=== PATIENT | female | born 2005 | race Caucasian/White ===

== ENCOUNTER 2024-12-22 15:22 | Inpatient (IN) | payer OTHER, MEDICAID ==
[~2024-12-22] VITALS: Ht 170.2 cm; Wt 53.2 kg
[~2024-12-22 15:22] MED LIST: HYDR50CA5 PO; NICO-631 TOP; RISP-32 PO
--- NOTE | 2024-12-22 15:52 | Physician Documentation ---
History of Present Illness ~ Chief Complaint: Mental Health Divyaal Stated Complaint: MH Time Seen by MD: 15:34 Primary Medical Doctor: none HPI This is a 19 yr old female who states that she has extensive mental health issues but does not currently see a psychiatrist or therapist. Not currently on medications, but reports that risperdal and hydroxyzine have been helpful in the past. Her specific concerns today surround feeling unsafe. "Someone is following me," and she states that she wants to strangle this man. When asked if she could identify him, she notes that she is not sure that she could because "everyone looks the same to me." She admits to feeling thoughts of self harm without plan and denies attempts to harm herself recently such as with overdose or cutting. Medication Reconciliation Allergies: Coded Allergies: No Known Allergies (Unverified , 05/28/23) Scheduled Nicotine 14 MG Patch* (Habitrol 14 MG Patch*), 1 PATCH TOP DAILY, (Reported) Risperidone (Risperidone), 1 TAB PO HS, (Reported) Scheduled PRN Hydroxyzine Pamoate (Hydroxyzine Pamoate), 1 CAP PO Q12H PRN for anxiety, (Rep orted) Discontinued Medications Home Med List (No Home Medications), (Reported) Discontinued Reason: patient no longer taking Nicotine 21 MG Patch* (Habitrol 21 MG Patch*), 1 PATCH TD DAILY Discontinued Reason: patient no longer taking Nicotine Polacrilex (Nicotine Lozenge), 2 MG BC Q2H PRN for NICOTINE CRAVING Discontinued Reason: patient no longer taking Prazosin Hcl (Prazosin Hcl), 1 CAP PO HS, (Reported) Discontinued Reason: patient no longer taking Past Medical History Past Medical History: No Pertinent History Past Surgical History: no surgical history Drug Use: marijuana Lives In: Home Review of Systems ROS As stated above in the HPI, otherwise all systems are reviewed and negative. Physical Exam Vital Signs: Temperature: 98.2, Source: Temporal, Heart Rate: 123, Respiratory Rate: 18, BP: 107/61, Pulse Oximetry: 100, Weight: 58.200 Oxygen Flow Rate: 0 Physical Exam General: Alert, no apparent distress. Neck: Full range of motion. Respiratory: Lungs clear, no respiratory distress. Chest: No accessory muscle use. Cardiovascular: Regular rate and rhythm, no murmurs. Gastrointestinal: Soft, nontender, nondistended. Bowels sounds present. Extremities: Normal range of motion, no deformity. Neurologic: Oriented x4. Psychiatric: Guarded, somewhat flat affect. Skin: Normal color, warm and dry. No edema, no ecchymosis. Progress Progress Note Transfer orders for [facility]: At this time there is no evidence of an emergent medical condition that would preclude (admission/transfer) to a psychiatric unit via [facility] protocol for further psychiatric, as well as medical evaluation and treatment. At this time I have no reason to believe that transfer via [facility] protocol would have serious medical compromise in the patient's health. Results/Orders Results/Orders Orders - ALYSON TOMLINSON NP Med Rec (12/22/24 15:48) 1799.11 (12/22/24 15:48) Regular Diet (12/22/24 Dinner) Close Observation Level (12/22/24 15:48) Covid19 Binax Poc Result Entry (12/22/24 15:48) Completed Orders - ALYSON TOMLINSON NP Drug Screen, Urine (12/22/24 15:47) Hcg, Ur Ql (12/22/24 15:47) BMP (12/22/24 15:47) Cbc/Diff (12/22/24 15:47) Risperidone Tablet (Risperdal Tablet) (12/22/24 16:25) Hydroxyzine Tablet (Atarax Tablet) (12/22/24 16:25) Ua With Microscopic (12/22/24 16:21) Medications Received in ER Medications (Trade) Dose Ordered Sig/Deanna Route PRN Reason Start Time Stop Time Status Last Admin Dose Admin (Risperdal tablet) 0.5 mg ONCE ONCE PO 12/22/24 16:25 12/22/24 16:26 DC 12/22/24 16:52 0.5 MG (Atarax tablet) 25 mg ONCE ONCE PO 12/22/24 16:25 12/22/24 16:26 DC 12/22/24 16:52 25 MG Vital Signs 12/22/24 12/22/24 15:27 16:34 Temp 98.2 Pulse 123 Resp 18 16 B/P (MAP) 107/61 Pulse Ox 100 O2 Flow Rate 0 Laboratory Tests Test 12/22/24 16:00 12/22/24 16:15 12/22/24 16:21 White Blood Count 4.9 Red Blood Count 4.34 Hemoglobin 13.4 Hematocrit 39.3 Mean Corpuscular Volume 90.6 Mean Corpuscular Hemoglobin 30.9 Mean Corpuscular Hemoglobin Concent 34.1 Red Cell Distribution Width 13.1 Platelet Count 227 Mean Platelet Volume 9.2 Neutrophils (%) (Auto) 58.0 Lymphocytes (%) (Auto) 31.4 Monocytes (%) (Auto) 9.6 Eosinophils (%) (Auto) 0.5 Basophils (%) (Auto) 0.5 Neutrophils # (Auto) 2.8 Lymphocytes # (Auto) 1.5 Monocytes # (Auto) 0.5 Eosinophils # (Auto) 0.0 Basophils # (Auto) 0.0 CBC Comment Sodium Level 142 Potassium Level 3.6 Chloride Level 107 Carbon Dioxide Level 23.7 L Anion Gap 11 Blood Urea Nitrogen 10 Creatinine 0.74 Estimated GFR/1.73 m2 > 90 BUN/Creatinine Ratio 13.5 Glucose Level 129 H Calcium Level 9.0 Albumin 4.3 Chemistry Comments SARS-CoV-2 Antigen (Rapid) Negative Urine Specimen Description Non-specified Urine Color Dark yellow Urine Clarity Slightly cloudy Urine pH 6.0 Urine Specific Lead >=1.030 Urine Protein 100 H Urine Glucose (UA) Negative Urine Ketones 40 H Urine Occult Blood Moderate H Urine Nitrite Negative Urine Bilirubin Moderate Urine Urobilinogen 0.2 Urine Leukocyte Esterase Negative Urine RBC 3-10 Urine WBC 0-4 Urine Squamous Epithelial Cells Moderate Urine Bacteria Few Urine Mucus Many Volume Urine Centrifuged 10 ml Urine HCG, Qualitative Negative Urine Comment Urine Opiates Screen Negative Urine Methadone Screen Negative Urine Fentanyl Screen Negative Urine Barbiturates Screen Negative Urine Phencyclidine Screen Negative Urine Amphetamines Screen Negative Urine Benzodiazepines Screen Negative Urine Cocaine Screen Negative Urine Cannabinoids Screen Positive H Drug Screen Comment Medical Decision Making Differential Dx:Considerations: Include: Alcohol abuse, Anxiety, Bipolar disorder, Conversion disorder, Depression, Encephaloathy, Homicidal, Panic disorder, Personality disorder, Schizophrenia, Substance abuse, Suicidal Departure Time of Disposition: 16:58 Disposition: 30 STILL A PATIENT Impression: Primary Impression: Suicidal ideation Additional Impression Text Transfer orders for [facility]: At this time there is no evidence of an emergent medical condition that would preclude (admission/transfer) to a psychiatric unit via [facility] protocol for further psychiatric, as well as medical evaluation and treatment. At this time I have no reason to believe that transfer via [facility] protocol would have serious medical compromise in the patient's health. Referrals: NO PRIMARY CARE PROVIDER (PCP) Signature Scribe Signature: x Attestation: The note accurately reflects work and decisions made by me.Alyson Tobias NP 12/22/24 15:52 ALYSON TOMLINSON NP Dec 22, 2024 15:52
[2024-12-22 16:31] LABS: MEAN PLATELET VOLUME 9.2 FL (7.4-10.4); RED CELL DISTRIBUTION WIDTH 13.1 % (11.5-14.5)
[2024-12-22 16:34] LABS: CREATININE 0.74 MG/DL (0.40-0.90); TOTAL CARBON DIOXIDE 23.7 MMOL/L (24-32); eCRCL 111 ML/MIN; eGFR > 90 ML/MIN
[2024-12-22 16:36] LABS: LEUKOCYTE ESTERASE ,URINE NEGATIVE (Neg); NITRITES, URINE NEGATIVE (Neg); OCCULT BLOOD,URINE MODERATE (Neg); URINE HCG NEGATIVE (NEG)
[2024-12-22 16:38] LABS: UA COLLECTION TYPE NON-SPECIFIED
[2024-12-22 16:42] LABS: MUCUS STRANDS MANY /LPF (Neg); SQUAMOUS EPITHELIAL CELL,UR MODERATE /LPF (FEW)
[2024-12-22 16:48] LABS: URINE AMPHETAMINE SCREEN NEGATIVE (Neg); URINE BARBITUATE SCREEN NEGATIVE (Neg); URINE BENZODIAZEPINES SCREEN NEGATIVE (Neg); URINE CANNABINOID SCREEN POSITIVE (Neg); URINE COCAINE SCREEN NEGATIVE (Neg); URINE METHADONE SCREEN NEGATIVE (Neg); URINE OPIATE SCREEN NEGATIVE (Neg); URINE PHENCYCLIDINE SCREEN NEGATIVE (Neg)
[2024-12-22] MEDS ORDERED: loperamide 2mg capsule PO PRN (20:40)
[2024-12-22] MEDS ORDERED: mag hydrox/Alum hydrox/simeth 30ml oral suspension PO PRN (20:40)
[2024-12-22 21:45] VITALS: RESP 18; O2SAT 98
[2024-12-23 00:23] VITALS: BP 115/70; PULSE 92; RESP 18; TEMP 98.2; O2SAT 98
[2024-12-23] MEDS ORDERED: NO HOME MEDS (04:56)
[2024-12-23 07:00] VITALS: RESP 14; O2SAT 99
[2024-12-23 08:00] VITALS: BP 98/68; PULSE 87; RESP 14; TEMP 97.6; O2SAT 99
[2024-12-23] MEDS: nicotine 21mg patch - 24 hr TD SCH (08:04)
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
--- NOTE | 2024-12-23 16:05 | HISTORY AND PHYSICAL-Residence ---
History & Physical Providers to CC Resident Creating Document: JOSE DANIEL LUNA RES ~ History of Present Illness Primary Medical Doctor: none Reason for Admit\Complaint: Psychiatric issues History of Present Illness The patient is a 19-year-old female with a known history of psychiatric illness, currently admitted to the [facility] unit. I evaluated her at the bedside. She reports a history of recurrent urinary tract infections, previously treated with outpatient antibiotics. Recently, she attempted self-treatment with home remedies, including grapefruit juice. She describes persistent urinary frequency and and dysuria almost every month just prior to her menstruation. Social history is notable for cigarettes use of approximately one pack per day for the past four years. She denies recreational drug use. During the encounter, she inquired about her ability to obtain life insurance. I deferred answering this question and referred her to Psychiatry and case management for further guidance. Allergies: Coded Allergies: No Known Allergies (Unverified , 05/28/23) Home Medications Home Medications Active Reported No Home Medications (Home Med List) Each Past Medical History Past Medical History Recurrent urinary tract infection Past Surgical History Surgical History Comment No history of surgical procedure Past Social History Social History Comment Smokes one pack of day for the past four years. Drug Use: Marijuana Lives In: Home ROS All Other Systems: Reviewed and Negative ROS As stated above in the HPI, otherwise all systems are reviewed and negative. Exam Vitals: Vital Signs Date Time Temp Pulse Resp B/P (MAP) Pulse Ox O2 Delivery O2 Flow Rate FiO2 12/23/24 08:00 97.6 87 14 98/68 (78) 99 Room Air 12/22/24 15:27 0 General: Thin built young woman, Awake and Alert, no acute distress. HEENT: Conjunctiva pink, Sclera clear, Mucus Membranes moist. Neck: Supple without masses and tenderness. Resp: Unlabored. Lungs clear to auscultation bilaterally. Heart: Regular Rate and rhythm, normal S1 and S2 without murmur, rub or gallop. Abdomen: Soft and non tender no organomegaly Extremities: No cyanosis,clubbing or edema. Skin: Warm and Dry. Diagnostic Data Last Recorded Lab Results: 12/22/24 1600 12/22/24 1600 Advance Care Planning Advanced Care plannin - 30 Minutes Additional Plan Psychiatric issues/suicidal ideation Managed per Psychiatry Suspected urinary tract infection vs Premenstrual Syndrom (PMS) A UA is ordered, we will follow Tobacco use disorder On Nicotine patch Jose Daniel Luna Internal Medicine Resident, PGY-3 Date of Service: Dec 23, 2024 Billing Provider: KATHERINE CHOWDHURY MD Common Visit Codes: [id number] INP/OBS CARE (HIGH) JOSE DANIEL LUNA, RES Dec 23, 2024 16:04 KATHERINE CHOWDHURY MD Dec 24, 2024 07:53
[2024-12-23 19:00] VITALS: RESP 18; O2SAT 99
[2024-12-23 20:00] VITALS: BP 147/87; PULSE 108; RESP 18; TEMP 97.6; O2SAT 99
[2024-12-24 07:00] VITALS: RESP 15; O2SAT 98
[2024-12-24 08:00] VITALS: BP 95/54; PULSE 71; RESP 15; TEMP 98.1; O2SAT 98
[2024-12-24 09:40] VITALS: BP 97/64; PULSE 81; RESP 18; TEMP 97.3; O2SAT 100
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
[2024-12-24 19:00] VITALS: RESP 16; O2SAT 100
[2024-12-24 20:00] VITALS: BP 114/78; PULSE 119; RESP 16; TEMP 97.9; O2SAT 100
[2024-12-25 07:00] VITALS: RESP 16; O2SAT 99
[2024-12-25 08:00] VITALS: BP 91/65; PULSE 81; RESP 16; TEMP 98.2; O2SAT 99
[2024-12-25] MEDS: NICOTINE POLACRILEX 2 MG LOZENGE BC PRN (11:16)
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
--- NOTE | 2024-12-25 17:50 | PROGRESS NOTE- Residence ---
Progress Note - Resident Providers to CC Resident Creating Document: MOJGAN QUINTEROS, AMALIA ~ Central Line/PICC still needed: N\A Zuñiga-Non Protocol Zuñiga Indications Met/Not Met: F/C Indications Not Met Antibiotic Timeout Antibiotic Ordered?: No Subjective Patient examined bedside. Complains of lower abdominal pain when she eats. Complains of constipation since 2 days, used to have regular bowel movement before that. No complaints of burning micturition, urgency or frequency, fever, nausea/vomiting. Objective Vital Signs Date Time Temp Pulse Resp B/P (MAP) Pulse Ox O2 Delivery O2 Flow Rate FiO2 12/25/24 08:00 98.2 81 16 91/65 (74) 99 Room Air 12/22/24 15:27 0 Result Diagram: 12/22/24 1600 12/22/24 1600 General: Well alert, well oriented, not confused, not agitated, not in acute distress, well cooperated during the physical. HEENT: Conjunctive are pink, sclerae clear, no icterus, pupil is equal in both sides, reactive to light, no ear discharge, no pharyngeal erythema or an edema. Neck: Supple, no JVD, no lymphadenopathy and thyromegaly. Chest: Equal air entry on both lungs, no added sounds, no wheeze. Cardiovascular: S1-S2 regular sinus rhythm and, regular rate, no gallops, no rubs, no murmurs Abdomen: No visible peristalsis, Bowel sounds present on auscultation, soft, nontender, no guarding, no rigidity Extremities: No obvious deformities, no pitting edema bilaterally, capillary refill intact, peripheral pulsations are intact on both sides Central Nervous System: No focal neurological deficits, no motor or sensory weakness in all 4 extremities, could move all 4 extremities, 2+ deep tendon reflexes, negative Babinski. Musculoskeletal: No joint swelling, deformities, inflammations, and no scoliosis and back tenderness Skin: Warm and dry. Counseling Services Smoking & Tobacco Cessation: N/A Advance Care Planning Advanced Care planning: N/A Plan Plan Psychiatric issues/suicidal ideation Managed per Psychiatry Suspected urinary tract infection vs Premenstrual Syndrom (PMS) A UA is ordered, we will follow 12/25/2024: UA shows few bacteria with 0-5 WBC Since the patient asymptomatic, no antibiotic recommended at this time. Lower abdominal pain with constipation Started Colace 100 mg p.o. b.i.d. Tobacco use disorder On Nicotine patch Mojgan Quinteros Internal Medicine, PGY1. Date of Service: Dec 25, 2024 Billing Provider: KATHERINE CHOWDHURY MD Common Visit Codes: [id number] INP/OBS CARE(MOD) MOJGAN QUINTEROS, RES Dec 25, 2024 17:50 KATHERINE CHOWDHURY MD Dec 26, 2024 07:46
[2024-12-25 19:00] VITALS: RESP 15; O2SAT 98
[2024-12-25 19:42] VITALS: BP 109/75; PULSE 98; RESP 15; TEMP 98.6; O2SAT 98
[2024-12-25] MEDS: docusate sodium 100mg/10ml UD cup PO SCH (21:05)
[2024-12-26 07:24] VITALS: RESP 16; O2SAT 98
[2024-12-26 08:00] VITALS: BP 116/77; PULSE 76; RESP 16; TEMP 98.2; O2SAT 98
[2024-12-26] MEDS: magnesium hydroxide 30ml (MOM) UD suspension PO PRN (10:40)
[2024-12-26 10:53] LABS: LDL CHOLESTEROL 66 MG/DL (50-100)
[2024-12-26 11:00] LABS: CHOL/HDL RATIO 2.8 (0.00-4.99)
--- NOTE | 2024-12-26 14:18 | PROGRESS NOTE ---
Progress Note Dictate Providers to CC ~ Central Line/PICC still needed: N\\A Antibiotic Ordered?: No MRSA Education MRSA Education Provided to pt: No Objective Vitals Vital Signs Date Time Temp Pulse Resp B/P (MAP) Pulse Ox O2 Delivery O2 Flow Rate FiO2 12/26/24 08:00 98.2 76 16 116/77 (90) 98 Room Air 12/22/24 15:27 0 Lab Results: 12/22/24 1600 12/22/24 1600 Problem\\Assessment\\Plan Problems/Diagnosis: (1) Paranoia (2) Borderline personality disorder Psychiatrist's Progress Note Date of Service: Dec 26, 2024 Notes CHART REVIEW Pt is 19 yo on a 5150 for DTS and GD. Pt state that she has staying in several PHP before. Pt came to ED because she felt unsafe and someone was following her. Pt presents with paranoia, fear, SI and hallucinations. Pt jumps from stranger stacking her to her biological father wants to harm her. Pt feels a burden on her family, this caused the SI. Pt states, "other people's voices in my head telling me I'm gross and disgusting I am". Pt feels she is being pulled towards danger. Pt is very animated and labile during her interview. Pt has the delusion that her family is in danger by the man stalking her. "I don't know who he is but he will yell at me as he is stalking me". Skin check and MRSA done. Pt is cooperative and oriented to unit. ASSESSMENT The patient was interviewed in observation room. The patient was actively sitting in rec room engaging with nurse. The patient endorses "I am feeling better." "Nope I am not paranoid today." Patient endorses no worsening mental health symptoms. Denies SI. Denies HI. Denies AVH. Patient endorses adequate sleep and food intake. The patient is stable no acute distress noted. The patient presents as calm and cooperative. Per staff report no abnormal behaviors. Will continue daily assessment and adjusting treatment as needed. Closely monitor behavior and response to medication during hospitalization. Results Of any Diagn. Testing REVIEW OF LABS URINALYSIS NEGATIVE COVID NEGATIVE URINE TOX SCREEN POSITIVE FOR CANNABIS RBC 4.34 HEMOGLOBIN 13.4 HEMATOCRIT 39.3 PLATELET COUNT 227 SODIUM 142 POTASSIUM 3.6 CHLORIDE 107 ANION GAP 11 BUN 10 CREATININE 0.74 CALCIUM 9.0 ALBUMIN 4.3 Speech: Other (CIRCUMSTANTIAL) Speech: Other (CIRCUMSTANTIAL) Eye Contact: Normal Motor Activity: Normal Affect: Full Mood: Euthymic Orientation Impairment: None Memory Impairment: None Attention: Normal Hallucinations: None Other: None Suicidality: None Homicidality: None Delusions: None Behavior: Cooperative Insight: Fair Judgment: Fair Treatment RISPERIDONE 2MG P.O. QHS HYDROXYZINE 50 MG P.O. Q.6 PRN THORAZINE 50 MG P.O. Q.6 PRN-AGITATION/ANXIETY BENADRYL 50 MG P.O. Q.6 PRN-EPS TRAZODONE 50 MG P.O. Q.H.S. Monitoring by Staff, Milieu, Group, and Individual counseling as needed -- According to the [place] Suicide Assessment the above named patient is on Q15 MINUTE CHECKS. [id number]-Patient is unable to formulate a plan for safety. We are still titrating medications to an effective dose while maintaining a therapeutic environment to prevent decompensation and readmission. Time spent 25 minutes REVIEW OF Clinical notes [X ] RN notes [X] PCT documentation [X] SW notes Labs [ X] Medications [X] Care trends/care activity [X] Vitals [X] DISCUSSION WITH motorcycle builder [X] Staff SW [X] Treatment Team [X] Discharge UNSURE AT THIS TIME. DISCHARGE HOME MONDAY ONCE STABLE. CODING VISIT-PSYCHIATRY Date of Service: Dec 26, 2024 Billing Provider: DINA ULLOA APRN Psych Common Visit Codes: [id number] INP/OBS CARE(Low) DINA ULLOA APRN Dec 26, 2024 14:18
[2024-12-26 19:00] VITALS: RESP 16; O2SAT 99
[2024-12-26 20:00] VITALS: BP 117/71; PULSE 109; RESP 16; TEMP 97.6; O2SAT 99
[2024-12-27 07:00] VITALS: RESP 16; O2SAT 96
[2024-12-27 08:00] VITALS: BP 99/57; PULSE 65; RESP 16; TEMP 97.8; O2SAT 96
--- NOTE | 2024-12-27 11:29 | PROGRESS NOTE ---
Progress Note Dictate Providers to CC ~ Central Line/PICC still needed: N\\A Antibiotic Ordered?: No MRSA Education MRSA Education Provided to pt: No Objective Vitals Vital Signs Date Time Temp Pulse Resp B/P (MAP) Pulse Ox O2 Delivery O2 Flow Rate FiO2 12/27/24 08:00 97.8 65 16 99/57 (71) 96 Room Air Problem\\Assessment\\Plan Problems/Diagnosis: (1) Paranoia (2) Borderline personality disorder Psychiatrist's Progress Note Date of Service: Dec 27, 2024 Notes CHART REVIEW Pt is 19 yo on a 5150 for DTS and GD. Pt state that she has staying in several PHP before. Pt came to ED because she felt unsafe and someone was following her. Pt presents with paranoia, fear, SI and hallucinations. Pt jumps from stranger stacking her to her biological father wants to harm her. Pt feels a burden on her family, this caused the SI. Pt states, "other people's voices in my head telling me I'm gross and disgusting I am". Pt feels she is being pulled towards danger. Pt is very animated and labile during her interview. Pt has the delusion that her family is in danger by the man stalking her. "I don't know who he is but he will yell at me as he is stalking me". Skin check and MRSA done. Pt is cooperative and oriented to unit. ASSESSMENT The patient was interviewed in observation room. The patient was actively sitting in rec room listening to music and engaging with peers. The patient endo rses "Good." The patient endorses no worsening mental health symptoms. The patient endorses she can not afford her co-pay for her medication "I guess I can go powerwash some trash cans for the money" and has been coming to the ER for medications. The patient endorses she cant get them from the [facility] due to insurance. Denies SI. Denies HI. Denies AVH. Patient endorses adequate sleep and food intake. The patient is stable no acute distress noted. The patient presents as calm and cooperative. Per Per staff report no abnormal behaviors. Will continue daily assessment and adjusting treatment as needed. Closely monitor behavior and response to medication during hospitalization. Will follow up dialysis social worker regarding patient being able to afford her co-pay f or medications or if [facility] is able to pay for medications for discharge. If patient is discharged without medications she will decompensate in returned for re-hospitalization. Results Of any Diagn. Testing REVIEW OF LABS URINALYSIS NEGATIVE COVID NEGATIVE URINE TOX SCREEN POSITIVE FOR CANNABIS RBC 4.34 HEMOGLOBIN 13.4 HEMATOCRIT 39.3 PLATELET COUNT 227 SODIUM 142 POTASSIUM 3.6 CHLORIDE 107 ANION GAP 11 BUN 10 CREATININE 0.74 CALCIUM 9.0 ALBUMIN 4.3 Speech: Other (CIRCUMSTANTIAL) Eye Contact: Normal Motor Activity: Normal Affect: Full Mood: Euthymic Orientation Impairment: None Memory Impairment: None Attention: Normal Hallucinations: None Other: None Suicidality: None Homicidality: None Delusions: None Behavior: Cooperative Insight: Good Judgment: Good Treatment RISPERIDONE 2MG P.O. QHS HYDROXYZINE 50 MG P.O. Q.6 PRN THORAZINE 50 MG P.O. Q.6 PRN-AGITATION/ANXIETY BENADRYL 50 MG P.O. Q.6 PRN-EPS TRAZODONE 50 MG P.O. Q.H.S. Monitoring by Staff, Milieu, Group, and Individual counseling as needed -- According to the [place] Suicide Assessment the above named patient is on Q15 MINUTE CHECKS. [id number]-Patient is unable to formulate a plan for safety. We are still titrating medications to an effective dose while maintaining a therapeutic environment to prevent decompensation and readmission. Time spent 40 minutes REVIEW OF Clinical notes [X ] RN notes [X] PCT documentation [X] SW notes Labs [ X] Medications [X] Care trends/care activity [X] Vitals [X] DISCUSSION WITH database analyst [X] Staff SW [X] Treatment Team [X] Discharge UNSURE AT THIS TIME. DISCHARGE HOME MONDAY ONCE STABLE CODING VISIT-PSYCHIATRY Date of Service: Dec 27, 2024 Billing Provider: DINA ULLOA APRN Psych Common Visit Codes: [id number] INP/OBS CARE(Mod) DINA ULLOA APRN Dec 27, 2024 11:29
--- NOTE | 2024-12-27 15:11 | PROGRESS NOTE- Residence ---
Progress Note - Resident Providers to CC Resident Creating Document: MICHELL TEJADA RES ~ Antibiotic Timeout Antibiotic Ordered?: No Subjective Patient seen and examined at the bedside. She denies any medical complaints today. Objective Vital Signs Date Time Temp Pulse Resp B/P (MAP) Pulse Ox O2 Delivery O2 Flow Rate FiO2 12/27/24 08:00 97.8 65 16 99/57 (71) 96 Room Air General: Awake and Alert, no acute distress. HEENT: Conjunctiva pink, Sclera clear, Mucus Membranes moist. Neck: Supple without masses and tenderness. Resp: Unlabored. Lungs clear to auscultation bilaterally. Heart: Regular Rate and rhythm, normal S1 and S2 without murmur, rub or gallop. Abdomen: Soft and non tender no organomegaly Extremities: No cyanosis,clubbing or edema. Skin: Warm and Dry. Plan Plan Assessment 19-year-old female patient admitted for suicidal ideation. Psychiatric issues/suicidal ideation Psychiatry management Asymptomatic bacteriuria 12/25/2024: UA shows few bacteria with 0-5 WBC No antibiotic recommended at this time. Constipation Colace 100 mg p.o. b.i.d. as needed Tobacco use disorder On Nicotine patch Disposition: Hospitalist will continue to follow. Resident MD attestation The above note has been reviewed and supervised by a senior resident PGY2/PGY3 Patient was seen, examined and discussed with the attending physician Date of Service: Dec 27, 2024 Billing Provider: DARIUSZ LEWIS MD, LUCAS, RES Dec 27, 2024 15:11
[2024-12-27 19:00] VITALS: RESP 18; O2SAT 98
[2024-12-27 20:00] VITALS: BP 97/64; PULSE 72; RESP 18; TEMP 97.8; O2SAT 98
[2024-12-28 07:00] VITALS: RESP 13; O2SAT 98
[2024-12-28 07:47] LABS: LEUKOCYTE ESTERASE ,URINE NEGATIVE (Neg); NITRITES, URINE NEGATIVE (Neg); OCCULT BLOOD,URINE MODERATE (Neg)
[2024-12-28 07:51] LABS: UA COLLECTION TYPE NON-SPECIFIED
[2024-12-28 07:53] LABS: SQUAMOUS EPITHELIAL CELL,UR MODERATE /LPF (FEW)
[2024-12-28 08:00] VITALS: BP 106/41; PULSE 69; RESP 13; TEMP 97.4; O2SAT 98
--- NOTE | 2024-12-28 11:42 | PROGRESS NOTE ---
Progress Note Dictate Providers to CC ~ Central Line/PICC still needed: N\\A Antibiotic Ordered?: No MRSA Education MRSA Education Provided to pt: No Objective Vitals Vital Signs Date Time Temp Pulse Resp B/P (MAP) Pulse Ox O2 Delivery O2 Flow Rate FiO2 12/28/24 08:00 97.4 69 13 106/41 (62) 98 Room Air Problem\\Assessment\\Plan Problems/Diagnosis: (1) Paranoia (2) Borderline personality disorder Psychiatrist's Progress Note Date of Service: Dec 28, 2024 Notes CHART REVIEW Pt is 19 yo on a 5150 for DTS and GD. Pt state that she has staying in several PHP before. Pt came to ED because she felt unsafe and someone was following her. Pt presents with paranoia, fear, SI and hallucinations. Pt jumps from stranger stacking her to her biological father wants to harm her. Pt feels a burden on her family, this caused the SI. Pt states, "other people's voices in my head telling me I'm gross and disgusting I am". Pt feels she is being pulled towards danger. Pt is very animated and labile during her interview. Pt has the delusion that her family is in danger by the man stalking her. "I don't know who he is but he will yell at me as he is stalking me". Skin check and MRSA done. Pt is cooperative and oriented to unit. ASSESSMENT The patient was interviewed in observation room. The patient was actively sitting in rec room completing a puzzle with peers.The patient endorses "I am d oing pretty well." The patient endorses no worsening mental health symptoms. Denies SI. Denies HI. Denies AVH. The patient endorses adequate sleep and food intake. The patient is stable no acute distress noted. The patient presents as calm and cooperative. Per Per staff report no abnormal behaviors. Will continue daily assessment and adjusting treatment as needed. Closely monitor behavior and response to medication during hospitalization. Results Of any Diagn. Testing REVIEW OF LABS URINALYSIS NEGATIVE COVID NEGATIVE URINE TOX SCREEN POSITIVE FOR CANNABIS RBC 4.34 HEMOGLOBIN 13.4 HEMATOCRIT 39.3 PLATELET COUNT 227 SODIUM 142 POTASSIUM 3.6 CHLORIDE 107 ANION GAP 11 BUN 10 CREATININE 0.74 CALCIUM 9.0 ALBUMIN 4.3 Speech: Other (CIRCUMSTANTIAL) Eye Contact: Normal Motor Activity: Normal Affect: Full Mood: Euthymic Orientation Impairment: None Memory Impairment: None Attention: Normal Hallucinations: None Other: None Suicidality: None Homicidality: None Delusions: None Behavior: Cooperative Insight: Good Judgment: Good Treatment RISPERIDONE 2MG P.O. QHS HYDROXYZINE 50 MG P.O. Q.6 PRN THORAZINE 50 MG P.O. Q.6 PRN-AGITATION/ANXIETY BENADRYL 50 MG P.O. Q.6 PRN-EPS TRAZODONE 50 MG P.O. Q.H.S. Monitoring by Staff, Milieu, Group, and Individual counseling as needed -- According to the [place] Suicide Assessment the above named patient is on Q15 MINUTE CHECKS. VOLUNTARY Time spent 40 minutes REVIEW OF Clinical notes [X ] RN notes [X] PCT documentation [X] SW notes Labs [ X] Medications [X] Care trends/care activity [X] Vitals [X] DISCUSSION WITH pre owned sales consultant [X] Staff SW [X] Treatment Team [X] Discharge UNSURE AT THIS TIME. DISCHARGE HOME MONDAY ONCE STABLE CODING VISIT-PSYCHIATRY Date of Service: Dec 28, 2024 Billing Provider: DINA ULLOA APRN Psych Common Visit Codes: [id number] INP/OBS CARE(Mod) DINA ULLOA APRN Dec 28, 2024 11:42
[2024-12-28] MEDS ORDERED: HYDR-3686 PO (14:14)
[2024-12-28] MEDS ORDERED: RISP-32 PO (14:14)
[2024-12-28 19:00] VITALS: RESP 16; O2SAT 99
[2024-12-28 20:00] VITALS: BP 96/54; PULSE 89; RESP 16; TEMP 98.5; O2SAT 99
[2024-12-28 21:15] VITALS: BP 102/65; PULSE 83; O2SAT 99
[2024-12-29 07:00] VITALS: RESP 12; O2SAT 96
[2024-12-29 08:00] VITALS: BP 90/50; PULSE 75; RESP 12; TEMP 98.8; O2SAT 96
[2024-12-29] MEDS ORDERED: TRAZ-251 PO (11:55)
[2024-12-29] MEDS ORDERED: RISP-32 PO (11:57)
[2024-12-29] MEDS ORDERED: HYDR-3686 PO (11:57)
--- NOTE | 2024-12-29 12:01 | PROGRESS NOTE ---
Progress Note Dictate Providers to CC ~ Central Line/PICC still needed: N\\A Antibiotic Ordered?: No MRSA Education MRSA Education Provided to pt: No Objective Vitals Vital Signs Date Time Temp Pulse Resp B/P (MAP) Pulse Ox O2 Delivery O2 Flow Rate FiO2 12/29/24 08:00 98.8 75 12 90/50 (63) 96 Room Air 0.0 Problem\\Assessment\\Plan Problems/Diagnosis: (1) Paranoia (2) Borderline personality disorder Psychiatrist's Progress Note Date of Service: Dec 29, 2024 Notes CHART REVIEW Pt is 19 yo on a 5150 for DTS and GD. Pt state that she has staying in several PHP before. Pt came to ED because she felt unsafe and someone was following her. Pt presents with paranoia, fear, SI and hallucinations. Pt jumps from stranger stacking her to her biological father wants to harm her. Pt feels a burden on her family, this caused the SI. Pt states, "other people's voices in my head telling me I'm gross and disgusting I am". Pt feels she is being pulled towards danger. Pt is very animated and labile during her in terview. Pt has the delusion that her family is in danger by the man stalking her. "I don't know who he is but he will yell at me as he is stalking me". Skin check and MRSA done. Pt is cooperative and oriented to unit. ASSESSMENT The patient was interviewed in observation room. The patient was actively am blinking in hallway returning from outside activity. The patient endorses "Good." The patient endorses no worsening mental health symptoms. Denies SI. Denies HI. Denies AVH. The patient endorses adequate sleep and food intake. The patient is stable no acute distress noted. The patient presents as calm and cooperative. Per Per staff report no abnormal behaviors. Will continue daily assessment and adjusting treatment as needed. Closely monitor behavior and response to medication during hospitalization. Results Of any Diagn. Testing REVIEW OF LABS URINALYSIS NEGATIVE COVID NEGATIVE URINE TOX SCREEN POSITIVE FOR CANNABIS RBC 4.34 HEMOGLOBIN 13.4 HEMATOCRIT 39.3 PLATELET COUNT 227 SODIUM 142 POTASSIUM 3.6 CHLORIDE 107 ANION GAP 11 BUN 10 CREATININE 0.74 CALCIUM 9.0 ALBUMIN 4.3 Speech: Normal (RATE RHYTHM TONE) Eye Contact: Normal Motor Activity: Normal Affect: Full Mood: Euthymic Orientation Impairment: None Memory Impairment: None Attention: Normal Hallucinations: None Other: None Suicidality: None Homicidality: None Delusions: None Behavior: Cooperative Insight: Good Judgment: Good Treatment RISPERIDONE 2MG P.O. QHS HYDROXYZINE 50 MG P.O. Q.6 PRN THORAZINE 50 MG P.O. Q.6 PRN-AGITATION/ANXIETY BENADRYL 50 MG P.O. Q.6 PRN-EPS TRAZODONE 50 MG P.O. Q.H.S. Monitoring by Staff, Milieu, Group, and Individual counseling as needed -- According to the [place] Suicide Assessment the above named patient is on Q15 MINUTE CHECKS. VOLUNTARY Time spent 30 minutes REVIEW OF Clinical notes [X ] RN notes [X] PCT documentation [X] SW notes Labs [ X] Medications [X] Care trends/care activity [X] Vitals [X] DISCUSSION WITH equipment maintenance supervisor [X] Staff SW [X] Treatment Team [X] Discharge UNSURE AT THIS TIME. DISCHARGE HOME MONDAY ONCE STABLE CODING VISIT-PSYCHIATRY Date of Service: Dec 29, 2024 Billing Provider: DINA ULLOA APRN Psych Common Visit Codes: [id number] INP/OBS CARE(Low) DINA ULLOA APRN Dec 29, 2024 12:01
[2024-12-29 19:25] VITALS: RESP 16; O2SAT 99
[2024-12-29 19:28] VITALS: BP 93/58; PULSE 102; RESP 16; TEMP 98.2; O2SAT 99
--- NOTE | 2024-12-29 20:59 | PROGRESS NOTE- Residence ---
Progress Note - Resident Providers to CC Resident Creating Document: WILY ESCOBAR, RES ~ Antibiotic Timeout Antibiotic Ordered?: No Subjective Patient seen and examined at the bedside. She denies any new concerns Objective Vital Signs Date Time Temp Pulse Resp B/P (MAP) Pulse Ox O2 Delivery O2 Flow Rate FiO2 12/29/24 19:28 98.2 102 16 93/58 (70) 99 Room Air 12/29/24 08:00 0.0 General: Awake and Alert, no acute distress. HEENT: Conjunctiva pink, Sclera clear, Mucus Membranes moist. Neck: Supple without masses and tenderness. Resp: Unlabored. Lungs clear to auscultation bilaterally. Heart: Regular Rate and rhythm, normal S1 and S2 without murmur, rub or gallop. Abdomen: Soft and non tender no organomegaly Extremities: No cyanosis,clubbing or edema. Skin: Warm and Dry. Advance Care Planning Advanced Care plannin - 30 Minutes Plan Plan Assessment 19-year-old female patient admitted for suicidal ideation. Psychiatric issues/suicidal ideation Psychiatry management Asymptomatic bacteriuria 12/25/2024: UA shows few bacteria with 0-5 WBC No antibiotic recommended at this time. Constipation Colace 100 mg p.o. b.i.d. as needed Tobacco use disorder On Nicotine patch Disposition: Hospitalist will continue to follow. Wily Escobar PGY1-Internal Medicine Resident Date of Service: Dec 29, 2024 Billing Provider: DARIUSZ LEWIS MD, SATISH, AMALIA Dec 29, 2024 20:59
[2024-12-30 07:00] VITALS: BP 113/60; PULSE 82; RESP 16; TEMP 97.1; O2SAT 99
[2024-12-30 08:00] VITALS: RESP 16; O2SAT 99
--- NOTE | 2024-12-30 11:13 | DISCHARGE SUMMARY ---
Discharge Summary Providers to CC ~ Discharge Summary Admission Diagnosis: BORDERLINE PERSONALITY DISORDER. UNSPECIFIED PSYCHOSIS.DEPRESSION Hospital Course DATE OF ADMISSION: DATE OF DISCHARGE: Discharge Diagnosis\\Comment: BORDERLINE PERSONALITY DISORDER. UNSPECIFIED PSYCHOSIS Operations\\Procedures: NONE Consultants: MEDICAL TEAM Complications: NONE Condition on DC: Stable 2 or more antipsychotic used: No 2/more antipsychotic addressed: No Does Patient smoke: Yes Smoking education given.: Yes New Medications: Hydroxyzine Hcl* (Atarax*) 25 Mg Tablet 50 MG PO Q6H PRN for anxiety for 30 Days, #240 TAB Risperidone (Risperidone) 2 Mg Tablet 2 MG PO HS for 30 Days, #60 TAB Discontinued Medications: Home Med List (No Home Medications) Each Discharge Summary: CHART REVIEW This is a 19-year-old female who states that she has extensive mental health issues but does not currently see a psychiatrist or therapist. Not currently on medications but reports that risperidone and hydroxyzine has been helpful in the past. Her specific concerns today so around feeling unsafe. Someone is following me and she states that she wants to strangle this man. When asked if she could identify him she notes that she is not sure that she could because everyone looks the same to me. She admits to feeling thoughts of self-harm without plan and denies attempts to harm herself recently such as with overdose or cutting. Patient actively seen and examined on day of discharge 12/30/2024, by myself, SEBASTIAN Mcfadden. The patient is interviewed in psychiatric exam room. The patient endorses "Good." Denies SI. Denies HI. Denies AVH. Marian was able to formulate a safety plan which includes going to the emergency room if symptoms return or worsen. Call [phone] or [phone] for immediate assistance if necessary During her hospital stay,Marian received multidisciplinary treatment she adhered to her medication regimen and has been pleasant and cooperative. She denies any suicidal ideation (SI), homicidal ideation (HI), auditory/visual hallucination (HI). Staff has reported no behavioral issues, and the patient has been sleeping well, adequate food intake, with no mood or behavioral changes noted. The decision to discharge Marian was made in consensus with the treatment team, including the social sciences lecturer, coating and embossing unit operator, and rn charge on duty. The patient was discharged with a 30 day supply of medications. MENTAL STATUS EXAM APPEARANCE: APPROPRIATELY. DRESSED IN STREET CLOTHING. SPEECH: CIRCUMSTANTIAL EYE CONTACT: NORMAL AFFECT: CONGRUENT WITH MOOD MOOD: "GOOD" ORIENTATION IMPAIRMENT: NONE MEMORY IMPAIRMENT: NONE ATTENTION: NORMAL HALLUCINATIONS: NONE SUICIDALITY: NONE HOMICIDALITY: NONE DELUSIONS: NONE BEHAVIOR: COOPERATIVE, PLEASANT JUDGMENT: GOOD INSIGHT: GOOD Continue Current Inpatient Psychotropic Regimen @ home Follow-Up with Psychiatric Provider Safety Plan Discussed DISCHARGE CONDITION: Her readiness for discharge is supported by his stable mental status, adherence to treatment, and proactive approach to managing his mental health. Denies SI. Denies HI. Denies A/V/H. The patient has been informed to continue follow-up care to ensure ongoing support and monitoring. Patient discharged to home. *Problems/Diagnosis: (1) Psychosis Status: Acute (2) Depression Status: Resolved (3) Borderline personality disorder Status: Chronic (4) Gravely disabled Status: Chronic (5) Mood disorder Status: Chronic Total Time Spent on D/C: > 30 Minutes Counseling Services Smoking & Tobacco Cessation: > 10 Minutes CODING VISIT-PSYCHIATRY Date of Service: Dec 30, 2024 Billing Provider: DINA ULLOA APRN Psych Common Visit Codes: [id number] DISCH DAY >30min Problem Qualifiers (1) Psychosis: Qualified Codes: F29 - Unspecified psychosis not due to a substance or known physiological condition DINA ULLOA APRN Dec 30, 2024 11:09
[2024-12-30] MEDS ORDERED: TRAZ-251 PO (12:46)
== END 2024-12-30 13:43 | disposition home or self-care (01) | DRG 883 ==
LOC: ER 15:22 → ED HOLD 19:09 → UNDOADMIN 19:09 → ADULT MH 19:09
PROVIDERS: ADMIT Psychiatry & Neurology Psychiatry; ATTEND Psychiatry & Neurology Psychiatry
PROC: GZHZZZZ Group Psychotherapy (ICD-10-PCS; principal; 2024-12-23)
PROC: GZ51ZZZ Individual Psychotherapy, Behavioral (ICD-10-PCS; 2024-12-23)
DX: F60.3 Borderline personality disorder (principal); R45.851 Suicidal ideations; F22 Delusional disorders; R82.71 Bacteriuria; K59.00 Constipation, unspecified; F17.210 Nicotine dependence, cigarettes, uncomplicated; Z91.51 Personal history of suicidal behavior; Z87.440 Personal history of urinary (tract) infections; Z71.6 Tobacco abuse counseling
CPT/HCPCS: 36415; 80048; 80061; 80305; 81001; 81025; 83036; 83935; 85025; 87081; 87088; 87811; 99285; Q0177